=== PATIENT | male | born 1970 | race Caucasian/White ===

== ENCOUNTER 2017-03-13 15:02 | Emergency (ER) | payer BC, OTHER ==
[~2017-03-13] VITALS: Ht 177.8 cm; Wt 108.9 kg
--- NOTE | 2017-03-13 15:10 | NUR ---
HEADACHE X 2 WEEKS; SORE THROAT, BILATERAL EARACHE X 3-4 DAYS. VSS. AWAITING MD ORDER
--- NOTE | 2017-03-13 15:20 | NUR ---
DR LINDSEY AT BEDSIDE FOR EVAL
--- NOTE | 2017-03-13 15:40 | NUR ---
LAC #18 IV ACCESS. BLOOD SAMPLE COLLECTED SENT TO LAB
[2017-03-13 15:41] LABS: BASOPHILS % (AUTO) 0.4 % (0.0-2.0); EOSINOPHILS # (AUTO) 0.1 /CMM (0.0-0.7); EOSINOPHILS % (AUTO) 1.5 % (0.0-6.0); HEMATOCRIT 52 % (39-51); HEMOGLOBIN 17.6 g/dL (13.5-17.5); LYMPHOCYTES # (AUTO) 2.1 /CMM (0.8-4.8); MEAN CORPUSCULAR HEMOGLOBIN 31 PG (26.0-33.0); MEAN CORPUSCULAR HGB CONC 34 g/dl (31.0-36.0); MEAN CORPUSCULAR VOLUME 91 fL (80-96); MONOCYTES # (AUTO) 0.7 /CMM (0.1-1.30); MONOCYTES % (AUTO) 13.1 % (2.0-12.0); NEUTROPHILS # (AUTO) 2.5 /CMM (1.8-8.9); PLATELET COUNT (AUTO) 192 /CMM (150-450); RDW COEFFICIENT OF VARIATION 12.7 (11.5-15.0); WHITE BLOOD COUNT (AUTO) 5.4 K/uL (4.3-11.0)
--- NOTE | 2017-03-13 15:42 | NUR ---
PT TAKEN TO CT VIA WC
[2017-03-13 15:51] LABS: CALCIUM, SERUM 8.7 mg/dL (8.5-10.1); CREATININE 1.3 mg/dL (0.6-1.3)
[2017-03-13 15:58] LABS: INR 0.96 (0.87-1.13)
--- NOTE | 2017-03-13 16:49 | NUR ---
TEXTED DR. PEARL FOR MRI APPROVAL.
--- NOTE | 2017-03-13 17:08 | NUR ---
DEVELOPMENT CHEMIST WILL DO THE CASE AT 8.30PM OR 9PM.
--- NOTE | 2017-03-13 18:02 | NUR ---
spoke to zainab at radiology, lead principal technical architect eta [phone]
--- NOTE | 2017-03-13 18:36 | NUR ---
PT TAKEN TO MRI VIA WC
--- NOTE | 2017-03-13 20:29 | NUR ---
IV removed. Catheter intact and site benign. Pressure and 4x4 applied to site. No bleeding noted.
[2017-03-13 20:30] VITALS: BP 134/94
--- NOTE | 2017-03-13 20:42 | NUR ---
Patient discharged to home in stable condition. Written and verbal after care instructions given. Patient verbalizes understanding of instruction.
== END 2017-03-13 20:42 | disposition home or self-care (01) ==
LOC: ER 15:02
DX: R51 Headache (principal); H92.03 Otalgia, bilateral; K44.9 Diaphragmatic hernia without obstruction or gangrene; R79.1 Abnormal coagulation profile; F17.200 Nicotine dependence, unspecified, uncomplicated; Z90.89 Acquired absence of other organs; Z98.52 Vasectomy status
CPT/HCPCS: 36415; 70450; 70551; 80048; 85025; 85730; 99285; A4606; Z7610

== ENCOUNTER 2018-02-28 16:11 | Emergency (ER) | payer OTHER ==
[~2018-02-28] VITALS: Ht 175.3 cm; Wt 108.9 kg
[2018-02-28 16:11] VITALS: BP 135/88
== END 2018-02-28 16:43 | disposition home or self-care (01) ==
LOC: ER 16:12
DX: L82.1 Other seborrheic keratosis (principal); F17.200 Nicotine dependence, unspecified, uncomplicated; Z90.89 Acquired absence of other organs; Z98.890 Other specified postprocedural states
CPT/HCPCS: A4606; Z7502; Z7610

== ENCOUNTER 2022-03-20 10:04 | Emergency (ER) | payer MEDICAID, OTHER ==
[~2022-03-20] VITALS: Ht 175.3 cm; Wt 108.9 kg
--- NOTE | 2022-03-20 10:10 | NUR ---
BIBS C/O COUGH&FEVER. x3DAYS. IN ROOM AIR AND DENIES SOB. RESPIRATION REGULAR AND UNLABORED. WILL CONTINUE TO MONITOR THE PATIENT.
--- NOTE | 2022-03-20 10:40 | NUR ---
COVID SPECIMEN OBTAINED AND SENT TO LAB.
--- NOTE | 2022-03-20 10:41 | NUR ---
UNEMPLOYMENT EXAMINER AT BEDSIDE FOR XRAY.
[2022-03-20] MEDS ORDERED: AMOX/CLAVULANATE 875 MG TABLET ONE (10:57)
[2022-03-20] MEDS ORDERED: AMOX/CLAVULANATE 875 MG TABLET PO ONE (11:00)
[2022-03-20 11:12] LABS: BASOPHILS % (AUTO) 0.5 % (0.0-2.0); EOSINOPHILS % (AUTO) 0.1 % (0.0-6.0); HEMATOCRIT 36 % (39-51); HEMOGLOBIN 11.3 g/dL (13.5-17.5); LYMPHOCYTES % (AUTO) 18.1 % (20.0-44.0); MEAN CORPUSCULAR HGB CONC 31 g/dl (31.0-36.0); MEAN CORPUSCULAR VOLUME 72 fL (80-96); MONOCYTES # (AUTO) 0.9 K/uL (0.1-1.30); MONOCYTES % (AUTO) 15.1 % (2.0-12.0); NEUTROPHILS # (AUTO) 3.7 K/uL (1.8-8.9); NEUTROPHILS % (AUTO) 66.2 % (43.0-81.0); PLATELET COUNT (AUTO) 231 K/uL (150-450); RED BLOOD CELL COUNT(AUTO) 5.06 MIL/uL (4.5-6.0); WHITE BLOOD COUNT (AUTO) 5.6 K/uL (4.3-11.0)
[2022-03-20] MEDS ORDERED: AMOX-430 PO (11:57)
--- NOTE | 2022-03-20 12:02 | NUR ---
Patient discharged to home in stable condition. Written and verbal after care instructions given. Patient verbalizes understanding of instruction.
[2022-03-20 12:03] VITALS: BP 131/76
[2022-03-20 12:35] LABS: LYMPHOCYTES % (MANUAL) 24 % (16-48); MONOCYTES % (MANUAL) 7 % (0-11.0); NEUTROPHILS % (MANUAL) 69 (42-76)
== END 2022-03-20 12:03 | disposition home or self-care (01) ==
LOC: ER 10:07
DX: J18.9 Pneumonia, unspecified organism (principal); Z20.822 Contact with and (suspected) exposure to COVID-19
CPT/HCPCS: 36415; 71045; 85007; 85025; 87426; 99284; C9803

== ENCOUNTER 2024-06-16 03:49 | Emergency (ER) | payer MEDICAID ==
[~2024-06-16] VITALS: Ht 175.3 cm; Wt 87.5 kg
[~2024-06-16 03:49] MED LIST: AMOX-430 PO
[2024-06-16 04:47] VITALS: BP 135/88; TEMP 98.4; O2SAT 98
[2024-06-16] MEDS: IBUPROFEN 400 MG TABLET PO ONE (05:30)
[2024-06-16] MEDS ORDERED: IBUPROFEN 400 MG TABLET ONE (05:32)
== END 2024-06-16 05:46 | disposition home or self-care (01) ==
LOC: ER 03:51
DX: J02.8 Acute pharyngitis due to other specified organisms (principal); R59.0 Localized enlarged lymph nodes; F17.200 Nicotine dependence, unspecified, uncomplicated; Z90.49 Acquired absence of other specified parts of digestive tract; Z79.899 Other long term (current) drug therapy
CPT/HCPCS: 86403-TC; 87070-TC

== ENCOUNTER 2025-01-07 07:29 | Emergency (ER) | payer MEDICAID ==
[~2025-01-07] VITALS: Ht 175.3 cm; Wt 73.9 kg
[2025-01-07] MEDS ORDERED: ONDANSETRON HCL/PF 4 MG/2 ML VIAL ONE (08:20)
[2025-01-07] MEDS ORDERED: KETOROLAC TROMETHAMINE 15 MG/ML VIAL ONE (08:20)
[2025-01-07] MEDS ORDERED: TAMSULOSIN 0.4 MG CAP.SR.24H ONE (08:21)
[2025-01-07] MEDS ORDERED: MORPHINE SULFATE INJ 4 MG/ML DISP.SYRIN ONE (08:21)
[2025-01-07] MEDS: IV NS 0.9% 1,000 ML BAG IV ONE (08:40)
[2025-01-07 08:42] LABS: BASOPHILS # (AUTO) 0.1 K/uL (0.0-0.2); BASOPHILS % (AUTO) 0.8 % (0.0-2.0); EOSINOPHILS # (AUTO) 0.1 K/uL (0.0-0.7); EOSINOPHILS % (AUTO) 1.8 % (0.0-6.0); HEMATOCRIT 41 % (39-51); HEMOGLOBIN 13.2 g/dL (13.5-17.5); LYMPHOCYTES # (AUTO) 1.7 K/uL (0.8-4.8); LYMPHOCYTES % (AUTO) 25.1 % (20.0-44.0); MEAN CORPUSCULAR HEMOGLOBIN 25 PG (26.0-33.0); MEAN CORPUSCULAR HGB CONC 32 g/dl (31.0-36.0); MEAN CORPUSCULAR VOLUME 79 fL (80-96); MONOCYTES # (AUTO) 0.8 K/uL (0.1-1.30); MONOCYTES % (AUTO) 12.3 % (2.0-12.0); PLATELET COUNT (AUTO) 226 K/uL (150-450); RED BLOOD CELL COUNT(AUTO) 5.25 MIL/uL (4.5-6.0); RED CELL DISTRIBUTION WIDTH 18.4 % (11.5-15.0); WHITE BLOOD COUNT (AUTO) 6.6 K/uL (4.3-11.0)
[2025-01-07] MEDS: ONDANSETRON HCL/PF 4 MG/2 ML VIAL IVP ONE (08:44)
[2025-01-07] MEDS: TAMSULOSIN 0.4 MG CAP.SR.24H PO STA (08:44)
[2025-01-07] MEDS: KETOROLAC TROMETHAMINE 15 MG/ML VIAL IV ONE (08:47)
[2025-01-07 08:48] LABS: CALCIUM, SERUM 8.6 mg/dL (8.5-10.1); CREATININE 1.2 mg/dL (0.6-1.3); POTASSIUM 4.3 mmol/L (3.5-5.1)
[2025-01-07] MEDS: MORPHINE SULFATE INJ 2 MG/ML DISP.SYRIN IV ONE (08:49)
[2025-01-07 08:54] LABS: APPEARANCE,URINE CLEAR (CLEAR); BILIRUBIN,URINE NEGATIVE (NEGATIVE); BLOOD, URINE 2+ Ery/uL (NEGATIVE); COLOR,URINE YELLOW (YELLOW); KETONES,URINE NEGATIVE (NEGATIVE); LEUKOCYTE ESTERASE ,URINE NEGATIVE (NEGATIVE); NITRITE, URINE NEGATIVE (NEGATIVE); PROTEIN,URINE NEGATIVE (NEGATIVE); UGLUCOSE NEGATIVE (NEGATIVE); UROBILINOGEN,URINE 0.2 EU/dL (0.2)
[2025-01-07 08:54] LABS: ALBUMIN 3.8 g/dL (3.4-5.0); BILIRUBIN,DIRECT 0.1 mg/dL (0.0-0.2); BILIRUBIN,TOTAL 0.5 mg/dL (0.2-1.0); TOTAL PROTEIN, SERUM 7.3 g/dL (6.4-8.2)
[2025-01-07] MEDS ORDERED: NAPR-1164 PO (09:05)
[2025-01-07] MEDS ORDERED: TAMS-12 PO (09:05)
[2025-01-07 09:08] LABS: ADD URINE CULTURE NO; BACTERIA,URINE Few /HPF (None Seen); MUCUS,URINE Few /LPF (None Seen); SQUAMOUS EPITHELIAL CELL,UR None Seen /HPF (None Seen); WBC,URINE 0-2 /HPF (0-3)
[2025-01-07 09:56] VITALS: BP 137/88; TEMP 97.8; O2SAT 98
== END 2025-01-07 10:19 | disposition home or self-care (01) ==
LOC: ER 07:35
DX: N23 Unspecified renal colic (principal); F17.200 Nicotine dependence, unspecified, uncomplicated; Z90.49 Acquired absence of other specified parts of digestive tract
CPT/HCPCS: 99284; 96374; 96375; 96361; 85025; 80048; 87086; 83690; 80076; 81001; 36415; J1885; J2270; J2405; J7030

== ENCOUNTER 2025-01-12 12:13 | Emergency (ER) | payer MEDICAID ==
[~2025-01-12] VITALS: Ht 175.3 cm; Wt 87.5 kg
[~2025-01-12 12:13] MED LIST changes: +NAPR-1164 PO; +TAMS-12 PO
[2025-01-12] MEDS: ONDANSETRON HCL/PF - ER 4 MG/2 ML VIAL IV ONE (12:30)
[2025-01-12] MEDS: KETOROLAC TROMETHAMINE 15 MG/ML VIAL IV ONE ×2 (12:30→14:00)
[2025-01-12] MEDS: MORPHINE SULFATE INJ 2 MG/ML DISP.SYRIN IV ONE ×2 (12:30→14:00)
[2025-01-12] MEDS ORDERED: KETOROLAC TROMETHAMINE 15 MG/ML VIAL ONE ×2 (12:35→14:09)
[2025-01-12] MEDS ORDERED: ONDANSETRON HCL/PF 4 MG/2 ML VIAL ONE ×2 (12:35→12:48)
[2025-01-12] MEDS ORDERED: MORPHINE SULFATE INJ 4 MG/ML DISP.SYRIN ONE ×2 (12:35→14:10)
[2025-01-12 12:40] LABS: BASOPHILS % (AUTO) 0.4 % (0.0-2.0); EOSINOPHILS # (AUTO) 0.1 K/uL (0.0-0.7); EOSINOPHILS % (AUTO) 2.1 % (0.0-6.0); HEMATOCRIT 39 % (39-51); HEMOGLOBIN 12.8 g/dL (13.5-17.5); LYMPHOCYTES # (AUTO) 1.4 K/uL (0.8-4.8); LYMPHOCYTES % (AUTO) 26.5 % (20.0-44.0); MEAN CORPUSCULAR HEMOGLOBIN 26 PG (26.0-33.0); MEAN CORPUSCULAR HGB CONC 33 g/dl (31.0-36.0); MEAN CORPUSCULAR VOLUME 79 fL (80-96); MONOCYTES # (AUTO) 0.7 K/uL (0.1-1.30); MONOCYTES % (AUTO) 13.2 % (2.0-12.0); NEUTROPHILS # (AUTO) 3.1 K/uL (1.8-8.9); NEUTROPHILS % (AUTO) 57.8 % (43.0-81.0); PLATELET COUNT (AUTO) 231 K/uL (150-450); RED BLOOD CELL COUNT(AUTO) 4.97 MIL/uL (4.5-6.0); RED CELL DISTRIBUTION WIDTH 18.5 % (11.5-15.0); WHITE BLOOD COUNT (AUTO) 5.4 K/uL (4.3-11.0)
[2025-01-12] MEDS: IV NS 0.9% 1,000 ML BAG IV ONE (12:40)
[2025-01-12 12:54] LABS: CALCIUM, SERUM 8.7 mg/dL (8.5-10.1); CREATININE 1.2 mg/dL (0.6-1.3); POTASSIUM 4.3 mmol/L (3.5-5.1)
[2025-01-12 14:06] LABS: APPEARANCE,URINE CLEAR (CLEAR); BILIRUBIN,URINE NEGATIVE (NEGATIVE); BLOOD, URINE 1+ Ery/uL (NEGATIVE); COLOR,URINE YELLOW (YELLOW); KETONES,URINE NEGATIVE (NEGATIVE); LEUKOCYTE ESTERASE ,URINE NEGATIVE (NEGATIVE); NITRITE, URINE NEGATIVE (NEGATIVE); PROTEIN,URINE NEGATIVE (NEGATIVE); UGLUCOSE NEGATIVE (NEGATIVE); UROBILINOGEN,URINE 0.2 EU/dL (0.2)
[2025-01-12 14:10] LABS: ADD URINE CULTURE NO; BACTERIA,URINE Few /HPF (None Seen); MUCUS,URINE Few /LPF (None Seen); SQUAMOUS EPITHELIAL CELL,UR None Seen /HPF (None Seen)
[2025-01-12] MEDS ORDERED: OXYC-128 PO (14:40)
[2025-01-12] MEDS ORDERED: IBUP-1490 PO (14:40)
[2025-01-12 14:52] VITALS: BP 130/88; TEMP 98.7; O2SAT 98
== END 2025-01-12 14:54 | disposition home or self-care (01) ==
LOC: ER 12:13
DX: N13.2 Hydronephrosis with renal and ureteral calculous obstruction (principal); F17.200 Nicotine dependence, unspecified, uncomplicated; Z87.442 Personal history of urinary calculi; Z90.49 Acquired absence of other specified parts of digestive tract
CPT/HCPCS: 99285; 74176; 96374; 96361; 96375; 96376; 85025; 80048; 81001; 36415; J1885 ×2; J2270 ×2; J2405 ×3; J7030; A4223

== ENCOUNTER 2025-02-23 05:43 | Emergency (ER) | payer MEDICAID ==
[~2025-02-23] VITALS: Ht 175.3 cm; Wt 87.1 kg
[~2025-02-23 05:43] MED LIST changes: +IBUP-1490 PO; +OXYC-128 PO
[2025-02-23] MEDS ORDERED: ONDANSETRON HCL/PF 4 MG/2 ML VIAL ONE (06:37)
[2025-02-23] MEDS ORDERED: MORPHINE SULFATE INJ 4 MG/ML DISP.SYRIN ONE ×2 (06:38→15:06)
[2025-02-23] MEDS: ONDANSETRON HCL/PF 4 MG/2 ML VIAL IVP ONE (06:46)
[2025-02-23] MEDS: MORPHINE SULFATE INJ 2 MG/ML DISP.SYRIN IV ONE ×2 (06:46→15:11)
[2025-02-23 06:54] LABS: BASOPHILS % (AUTO) 0.6 % (0.0-2.0); EOSINOPHILS # (AUTO) 0.1 K/uL (0.0-0.7); EOSINOPHILS % (AUTO) 0.9 % (0.0-6.0); HEMATOCRIT 41 % (39-51); HEMOGLOBIN 13.7 g/dL (13.5-17.5); LYMPHOCYTES # (AUTO) 1.2 K/uL (0.8-4.8); LYMPHOCYTES % (AUTO) 14.1 % (20.0-44.0); MEAN CORPUSCULAR HEMOGLOBIN 26 PG (26.0-33.0); MEAN CORPUSCULAR HGB CONC 34 g/dl (31.0-36.0); MEAN CORPUSCULAR VOLUME 79 fL (80-96); MONOCYTES # (AUTO) 0.8 K/uL (0.1-1.30); MONOCYTES % (AUTO) 9.1 % (2.0-12.0); NEUTROPHILS # (AUTO) 6.3 K/uL (1.8-8.9); NEUTROPHILS % (AUTO) 75.3 % (43.0-81.0); PLATELET COUNT (AUTO) 201 K/uL (150-450); RED BLOOD CELL COUNT(AUTO) 5.16 MIL/uL (4.5-6.0); RED CELL DISTRIBUTION WIDTH 18.5 % (11.5-15.0); WHITE BLOOD COUNT (AUTO) 8.4 K/uL (4.3-11.0)
[2025-02-23 07:01] LABS: CALCIUM, SERUM 8.9 mg/dL (8.5-10.1); CREATININE 2.1 mg/dL (0.6-1.3); POTASSIUM 4.3 mmol/L (3.5-5.1)
[2025-02-23] MEDS ORDERED: KETOROLAC TROMETHAMINE 15 MG/ML VIAL ONE ×2 (07:11→11:31)
[2025-02-23] MEDS ORDERED: LIDOCAINE 5% (PATCH) 1 EA PATCH TP ONE (07:12)
[2025-02-23] MEDS: KETOROLAC TROMETHAMINE 15 MG/ML VIAL IV ONE ×2 (07:17→11:36)
[2025-02-23] MEDS: LIDOCAINE 5% (PATCH) 1 EA PATCH TP SCH (07:17)
[2025-02-23] MEDS: LIDOCAINE 5% (PATCH) 1 EA PATCH TP ONE (07:30)
[2025-02-23] MEDS ORDERED: CT SWABBABLE VALVE TRANS SET 1 EA INFUS.SET MC ONE (08:47)
[2025-02-23] MEDS ORDERED: IV NS 0.9% 250 ML IV ONE (08:47)
[2025-02-23] MEDS ORDERED: IOHEXOL-300 100 ML VIAL IV ONE (08:47)
[2025-02-23 09:47] LABS: APPEARANCE,URINE CLEAR (CLEAR); BILIRUBIN,URINE NEGATIVE (NEGATIVE); BLOOD, URINE 1+ Ery/uL (NEGATIVE); COLOR,URINE YELLOW (YELLOW); KETONES,URINE TRACE mg/dL (NEGATIVE); LEUKOCYTE ESTERASE ,URINE NEGATIVE (NEGATIVE); NITRITE, URINE NEGATIVE (NEGATIVE); PROTEIN,URINE NEGATIVE (NEGATIVE); UGLUCOSE NEGATIVE (NEGATIVE); UROBILINOGEN,URINE 0.2 EU/dL (0.2)
[2025-02-23 09:59] LABS: ADD URINE CULTURE NO; BACTERIA,URINE Rare /HPF (None Seen); SQUAMOUS EPITHELIAL CELL,UR None Seen /HPF (None Seen); WBC,URINE 0-2 /HPF (0-3)
[2025-02-23] MEDS ORDERED: ACET-2605 PO (14:58)
[2025-02-23] MEDS ORDERED: ONDA4TAB11 PO (14:58)
[2025-02-23] MEDS ORDERED: NAPR-1009 PO (14:58)
[2025-02-23 15:26] VITALS: BP 135/84; TEMP 99.3; O2SAT 99
[2025-02-24] MEDS ORDERED: HYDR-3980 PO (07:54)
== END 2025-02-23 15:27 | disposition home or self-care (01) ==
LOC: ER 05:48
DX: S37.19XA Other injury of ureter, initial encounter (principal); R10.9 Unspecified abdominal pain; F17.200 Nicotine dependence, unspecified, uncomplicated; Z87.442 Personal history of urinary calculi; Z90.49 Acquired absence of other specified parts of digestive tract; X58.XXXA Exposure to other specified factors, initial encounter; Y93.89 Activity, other specified; Y92.89 Other specified places as the place of occurrence of the external cause; Y99.8 Other external cause status
CPT/HCPCS: 99285; 74178; 96374; 96375; 96376; 85025; 80048; 87086; 81001; 36415; 74176 ×2; J1885 ×2; J2270 ×2; J2405; J7050; Q9967

== ENCOUNTER 2025-02-24 04:22 | Emergency (ER) | payer MEDICAID ==
[~2025-02-24] VITALS: Ht 175.3 cm; Wt 86.2 kg
[~2025-02-24 04:22] MED LIST changes: +ACET-2605 PO; +NAPR-1009 PO; +ONDA4TAB11 PO
[2025-02-24] MEDS: IV NS 0.9% 1,000 ML BAG IV ONE (06:14)
[2025-02-24 06:17] LABS: BASOPHILS % (AUTO) 0.2 % (0.0-2.0); EOSINOPHILS # (AUTO) 0.1 K/uL (0.0-0.7); EOSINOPHILS % (AUTO) 0.8 % (0.0-6.0); HEMATOCRIT 42 % (39-51); HEMOGLOBIN 14.1 g/dL (13.5-17.5); LYMPHOCYTES # (AUTO) 1.5 K/uL (0.8-4.8); LYMPHOCYTES % (AUTO) 17.3 % (20.0-44.0); MEAN CORPUSCULAR HEMOGLOBIN 26 PG (26.0-33.0); MEAN CORPUSCULAR HGB CONC 33 g/dl (31.0-36.0); MEAN CORPUSCULAR VOLUME 79 fL (80-96); MONOCYTES % (AUTO) 11.1 % (2.0-12.0); NEUTROPHILS # (AUTO) 6.1 K/uL (1.8-8.9); NEUTROPHILS % (AUTO) 70.6 % (43.0-81.0); PLATELET COUNT (AUTO) 210 K/uL (150-450); RED BLOOD CELL COUNT(AUTO) 5.36 MIL/uL (4.5-6.0); RED CELL DISTRIBUTION WIDTH 19.2 % (11.5-15.0); WHITE BLOOD COUNT (AUTO) 8.7 K/uL (4.3-11.0)
[2025-02-24] MEDS ORDERED: KETOROLAC TROMETHAMINE 15 MG/ML VIAL ONE ×2 (06:21→08:07)
[2025-02-24] MEDS ORDERED: MORPHINE SULFATE INJ 4 MG/ML DISP.SYRIN ONE (06:22)
[2025-02-24] MEDS ORDERED: ONDANSETRON HCL/PF 4 MG/2 ML VIAL ONE (06:22)
[2025-02-24 06:33] LABS: BILIRUBIN,DIRECT 0.1 mg/dL (0.0-0.2); BILIRUBIN,TOTAL 0.6 mg/dL (0.2-1.0); CALCIUM, SERUM 9.7 mg/dL (8.5-10.1); CREATININE 1.9 mg/dL (0.6-1.3); POTASSIUM 4.4 mmol/L (3.5-5.1); TOTAL PROTEIN, SERUM 7.8 g/dL (6.4-8.2)
[2025-02-24] MEDS: MORPHINE SULFATE INJ 2 MG/ML DISP.SYRIN IV ONE (06:42)
[2025-02-24] MEDS: ONDANSETRON HCL/PF 4 MG/2 ML VIAL IVP ONE (06:43)
[2025-02-24] MEDS: KETOROLAC TROMETHAMINE 15 MG/ML VIAL IV ONE ×2 (06:43→08:14)
[2025-02-24 07:05] LABS: PARTIAL THROMBOPLASTIN TIME 31.2 SEC (24.3-34.3); PROTHROMBIN TIME 10.6 SECS (9.2-11.1)
[2025-02-24] MEDS ORDERED: HYDR-3980 PO (07:54)
[2025-02-24 08:04] LABS: APPEARANCE,URINE CLEAR (CLEAR); BILIRUBIN,URINE NEGATIVE (NEGATIVE); BLOOD, URINE 2+ Ery/uL (NEGATIVE); COLOR,URINE YELLOW (YELLOW); KETONES,URINE NEGATIVE (NEGATIVE); LEUKOCYTE ESTERASE ,URINE NEGATIVE (NEGATIVE); NITRITE, URINE NEGATIVE (NEGATIVE); PROTEIN,URINE NEGATIVE (NEGATIVE); UGLUCOSE NEGATIVE (NEGATIVE); UROBILINOGEN,URINE 0.2 EU/dL (0.2)
[2025-02-24 08:15] VITALS: BP 145/89; TEMP 98.8; O2SAT 98
[2025-02-24 08:18] LABS: ADD URINE CULTURE NO; BACTERIA,URINE Rare /HPF (None Seen); RBC,URINE 21-50 /HPF (0-2); SQUAMOUS EPITHELIAL CELL,UR 0-2 /HPF (None Seen); WBC,URINE 0-2 /HPF (0-3)
== END 2025-02-24 08:16 | disposition home or self-care (01) ==
LOC: ER 04:24
DX: S37.19XA Other injury of ureter, initial encounter (principal); F17.200 Nicotine dependence, unspecified, uncomplicated; R10.9 Unspecified abdominal pain; Z87.442 Personal history of urinary calculi; Z90.49 Acquired absence of other specified parts of digestive tract; X58.XXXA Exposure to other specified factors, initial encounter; Y93.89 Activity, other specified; Y92.89 Other specified places as the place of occurrence of the external cause; Y99.8 Other external cause status
CPT/HCPCS: 99285; 96374; 96375; 96361; 96376; 85025; 80048; 83690; 80076; 81001; 36415; 85730; J1885 ×2; J2270; J2405; J7030

== ENCOUNTER 2025-03-31 23:05 | Emergency (ER) | payer MEDICAID ==
[~2025-03-31] VITALS: Ht 175.3 cm; Wt 88.0 kg
[~2025-03-31 23:05] MED LIST changes: +HYDR-3980 PO
[2025-04-01 03:05] LABS: BASOPHILS % (AUTO) 0.3 % (0.0-2.0); EOSINOPHILS # (AUTO) 0.1 K/uL (0.0-0.7); EOSINOPHILS % (AUTO) 1.1 % (0.0-6.0); HEMATOCRIT 42 % (39-51); HEMOGLOBIN 14.3 g/dL (13.5-17.5); LYMPHOCYTES # (AUTO) 1.9 K/uL (0.8-4.8); LYMPHOCYTES % (AUTO) 23.2 % (20.0-44.0); MEAN CORPUSCULAR HEMOGLOBIN 28 PG (26.0-33.0); MEAN CORPUSCULAR HGB CONC 34 g/dl (31.0-36.0); MEAN CORPUSCULAR VOLUME 83 fL (80-96); MONOCYTES # (AUTO) 1.1 K/uL (0.1-1.30); MONOCYTES % (AUTO) 13.2 % (2.0-12.0); NEUTROPHILS # (AUTO) 5.1 K/uL (1.8-8.9); NEUTROPHILS % (AUTO) 62.2 % (43.0-81.0); PLATELET COUNT (AUTO) 221 K/uL (150-450); RED CELL DISTRIBUTION WIDTH 19.9 % (11.5-15.0); WHITE BLOOD COUNT (AUTO) 8.1 K/uL (4.3-11.0)
[2025-04-01 03:31] LABS: CALCIUM, SERUM 8.9 mg/dL (8.5-10.1); CREATININE 1.2 mg/dL (0.6-1.3); POTASSIUM 4.1 mmol/L (3.5-5.1)
[2025-04-01 03:41] LABS: ALBUMIN 3.8 g/dL (3.4-5.0); BILIRUBIN,TOTAL 0.4 mg/dL (0.2-1.0); TOTAL PROTEIN, SERUM 8.1 g/dL (6.4-8.2)
[2025-04-01] MEDS ORDERED: chlorproMAZINE HCL 25 MG TABLET ONE (05:28)
[2025-04-01] MEDS: chlorproMAZINE HCL 25 MG TABLET PO ONE (05:35)
[2025-04-01] MEDS ORDERED: AMOX-430 PO (05:37)
[2025-04-01] MEDS ORDERED: CHLO25TA13 PO (05:37)
[2025-04-01] MEDS ORDERED: HYDROCODONE/APAP 10/325MG TABLET ONE (05:38)
[2025-04-01] MEDS: HYDROCODONE/APAP 10/325MG TABLET PO ONE (05:44)
[2025-04-01 08:07] VITALS: BP 143/87; TEMP 98.5; O2SAT 99
== END 2025-04-01 08:08 | disposition home or self-care (01) ==
LOC: ER 23:09
DX: J32.9 Chronic sinusitis, unspecified (principal); R06.6 Hiccough; F17.200 Nicotine dependence, unspecified, uncomplicated; Z87.442 Personal history of urinary calculi; Z90.49 Acquired absence of other specified parts of digestive tract; Z79.899 Other long term (current) drug therapy
CPT/HCPCS: 99284; 71250; 74176; 85025; 87040; 83690; 85378; 36415; 80053; 84484; 83880; Q0161

== ENCOUNTER 2025-11-03 17:54 | Emergency (ER) | payer MEDICAID ==
[~2025-11-03] VITALS: Ht 172.7 cm; Wt 90.7 kg
[~2025-11-03 17:54] MED LIST changes: +CHLO25TA13 PO
[2025-11-03] MEDS ORDERED: IBUPROFEN 400 MG TABLET ONE (18:48)
[2025-11-03] MEDS: IBUPROFEN 400 MG TABLET PO ONE (18:51)
[2025-11-03] MEDS ORDERED: CAPS60CR4 TP (20:00)
[2025-11-03] MEDS ORDERED: METH-647 PO (20:00)
[2025-11-03 20:24] VITALS: BP 128/78; TEMP 98.5; O2SAT 98
== END 2025-11-03 20:42 | disposition home or self-care (01) ==
LOC: ER 18:01
DX: M54.50 Low back pain, unspecified (principal); M54.2 Cervicalgia; F17.200 Nicotine dependence, unspecified, uncomplicated; Z90.49 Acquired absence of other specified parts of digestive tract
CPT/HCPCS: 72110-TC